=== PATIENT | female | born 1990 | race Asian ===

== ENCOUNTER 2019-12-23 16:32 | Emergency (ER) | payer OTHER ==
[~2019-12-23] VITALS: Ht 152.4 cm; Wt 49.8 kg
[2019-12-23] MEDS ORDERED: BIRTH CONTROL (16:58)
--- NOTE | 2019-12-23 16:58 | NUR ---
PT PRESENTED TO SOB AND CHEST PAIN X 2 WEEKS. INCREASE SOB WITH ACTIVITY. +COUGH. DENIES FEVERS/CHILLS.
[2019-12-23 17:55] LABS: BASOPHILS # (AUTO) 0.04 x10^3/uL (0-0.1); BASOPHILS % (AUTO) 1 % (0-1); EOSINOPHILS # (AUTO) 0.16 x10^3/uL (0-0.4); EOSINOPHILS % (AUTO) 2 % (1-7); LYMPHOCYTES # (AUTO) 2.24 x10^3/uL (1-3.4); LYMPHOCYTES % (AUTO) 35 % (22-44); MD NO; MEAN CORPUSCULAR HGB CONC 34.1 g/dL (32.4-35.8); MEAN CORPUSCULAR VOLUME 93.7 fL (80-100); MEAN PLATELET VOLUME 7.5 fL (7.4-10.4); MONOCYTES % (AUTO) 5 % (2-9); NEUTROPHILS # (AUTO) 3.64 x10^3/uL (1.8-6.8); NEUTROPHILS % (AUTO) 57 % (42-75); PLATELET COUNT 275 x10^3/uL (130-400); RED BLOOD COUNT 4.06 x10^6/uL (3.82-5.3); RED CELL DISTRIBUTION WIDTH 11.7 % (9.6-15.2)
[2019-12-23 18:05] LABS: ALBUMIN 4.1 g/dL (3.4-5.0); ANION GAP 6 mmol/L (5-15); CALCIUM 9.5 mg/dL (8.5-10.1); CHLORIDE 108 mmol/L (98-107); CREATININE 0.83 mg/dL (0.55-1.02)
--- NOTE | 2019-12-23 18:17 | NUR ---
PA AT BEDSIDE GOING OVER POC. RN TO START PIV.
--- NOTE | 2019-12-23 18:23 | NUR ---
PIV ACCESS OBTAINED, 20 R AC. PT REQUESTING TO USE THE RESTROOM. RN UNHOOKED PT FROM MONITOR. PT AMBULATED TO RESTOOM WITH A STEADY GAIT.
[2019-12-23] MEDS ORDERED: SODIUM CHLORIDE FLUSH 10ML SYR IVF ONE (18:30)
--- NOTE | 2019-12-23 18:32 | NUR ---
PT REQUESTING TO HAVE A "SNACK." OKAY BY PA FOR PT TO EAT.
--- NOTE | 2019-12-23 18:43 | NUR ---
REPORT TO EARNEST ESCALANTE TO ASSUME PRIMARY CARE OF PT.
--- NOTE | 2019-12-23 18:45 | NUR ---
PT TO CT.
[2019-12-23] MEDS ORDERED: DIPHENHYDRAMINE 12.5MG/5ML, 10ML UDC PO ONE (19:00)
[2019-12-23] MEDS ORDERED: OMNIPAQUE 350 MG/ML, 75ML BOTTLE ONE (19:01)
[2019-12-23] MEDS ORDERED: DIPHENHYDRAMINE 50 MG/ML, 1ML ONE (19:01)
[2019-12-23 19:04] VITALS: BP 111/66
--- NOTE | 2019-12-23 19:06 | NUR ---
ALL TESTS RESULTED. PT IS UP FOR RECHECK AT THIS TIME. RESTING ON GURNEY. VS STABLE. NADN.
--- NOTE | 2019-12-23 19:13 | NUR ---
PT MEDICATED PER EMAR.
[2019-12-23] MEDS ORDERED: DIPHENHYDRAMINE 50 MG/ML, 1ML IVPush ONE (19:30)
== END 2019-12-23 19:50 | disposition home or self-care (01) ==
LOC: ED 17:08
DX: J15.9 Unspecified bacterial pneumonia (principal); R50.9 Fever, unspecified; R05 Cough; R53.83 Other fatigue; R06.02 Shortness of breath
CPT/HCPCS: 36415; 71045; 71275; 80048; 82040; 85025; 85379; 93005; 96374; 99285; J1200; Q9967